=== PATIENT | male | born 1945 | race Caucasian/White ===

== ENCOUNTER 2016-12-24 06:29 | Observation (INO) | payer MEDICARE ==
[2016-12-23 14:11] LABS: HEMOGLOBIN 16.3 g/dL (13.7-18.0)
[2016-12-23 14:17] LABS: ASPARTATE AMINO TRANSFERASE 15 U/L (15-37); BLOOD UREA NITROGEN 12 mg/dL (7-18)
[~2016-12-24] VITALS: Ht 182.9 cm; Wt 108.4 kg
[~2016-12-24 06:29] MED LIST: ACET-1600 PO; AMIO200T42 PO; CYAN10005 PO; METO25TA35 PO; RIVA20TA PO
[2016-12-24 06:49] VITALS: BP 162/108
[2016-12-24] MEDS ORDERED: FENTANYL PF 250 MCG/5ML ONE (07:09)
[2016-12-24] MEDS ORDERED: MIDAZOLAM 1 MG/ML, 5ML ONE (07:10)
[2016-12-24] MEDS ORDERED: LIDOCAINE 2%, 20ML ONE (07:16)
[2016-12-24] MEDS ORDERED: HEPARIN 1,000 UNITS/ML, 10ML ONE (07:16)
[2016-12-24] MEDS ORDERED: ONDANSETRON 2MG/ML, 2ML ONE (07:46)
[2016-12-24] MEDS ORDERED: PROPOFOL 10 MG/ML, 20ML ONE (07:46)
[2016-12-24] MEDS ORDERED: SUCCINYLCHOLINE 20 MG/ML, 10ML ONE (07:46)
[2016-12-24] MEDS ORDERED: DEXAMETHASONE 4 MG/ML, 1ML ONE (07:46)
[2016-12-24] MEDS ORDERED: PROTAMINE SULFATE 10 MG/ML, 5ML ONE (09:09)
[2016-12-24] MEDS ORDERED: ZOLPIDEM 5MG TABLET PO PRN (09:30)
[2016-12-24] MEDS ORDERED: ONDANSETRON 2MG/ML, 2ML IVPush PRN ×2 (09:30→10:00)
[2016-12-24] MEDS ORDERED: FENTANYL PF 100 MCG/2ML IV PRN (10:00)
[2016-12-24] MEDS ORDERED: EPHEDRINE 50 MG/ML, 1ML IVPush PRN (10:00)
[2016-12-24] MEDS ORDERED: OXYcodone 5 MG/5 ML ORAL.SOL UDC PO PRN (10:00)
[2016-12-24] MEDS ORDERED: MIDAZOLAM 1 MG/ML, 2ML IV PRN (10:00)
[2016-12-24] MEDS ORDERED: ACETAMINOPHEN 325 MG TABLET PO PRN (10:00)
[2016-12-24] MEDS ORDERED: HYDROmorphone 1 MG/ML, 1ML IV PRN (10:00)
[2016-12-24] MEDS ORDERED: hydrALAzine 20 MG/ML, 1ML IV PRN (10:00)
[2016-12-24 16:27] VITALS: BP 147/84
[2016-12-24 18:48] VITALS: BP 151/88
[2016-12-24 20:29] VITALS: BP 124/75
[2016-12-24] MEDS: METOPROLOL TARTRATE 25 MG TABLET PO SCH (20:35)
[2016-12-24] MEDS ORDERED: AMIODARONE 200 MG TABLET PO SCH (21:00)
[2016-12-25 00:58] VITALS: BP 112/70
[2016-12-25 06:51] VITALS: BP 125/76
[2016-12-25] MEDS ORDERED: RIVAROXABAN 20 MG TABLET PO SCH (09:00)
[2016-12-25] MEDS ORDERED: CYANOCOBALAMIN 1,000 MCG TABLET PO SCH (09:00)
[2016-12-25] MEDS ORDERED: AMIODARONE 200 MG TABLET PO SCH (09:00)
[2016-12-25] MEDS: METOPROLOL TARTRATE 25 MG TABLET PO SCH (09:23)
== END 2016-12-25 12:50 | disposition home or self-care (01) ==
LOC: CACL 06:29 → ORIP 09:19 → 5SO 12:01 → DCLOUNGE 12-25 12:27
PROVIDERS: ADMIT Internal Medicine Cardiovascular Disease; ATTEND Internal Medicine Cardiovascular Disease
DX: I48.91 Unspecified atrial fibrillation (principal); I48.92 Unspecified atrial flutter
CPT/HCPCS: 36415; 71020; 80053; 85025; 85347; 85610; 85730; 93005; 93613; 93655; 93656; 93662; C1730; C1731; C1732; C1759; C1766; C1893; C1894; G0378; J0330; J1100; J1644; J2250; J2405; J2704; J2720; J3010; J3490